=== PATIENT | male | born 1990 | race Caucasian/White ===

== ENCOUNTER 2020-11-29 13:56 | Emergency (ER) | payer OTHER, SELFPAY ==
[2020-11-29] VITALS (9 sets, daily range): BP systolic 109–124; BP diastolic 67–78; PULSE 80–119; RESP 13–18; TEMP 37.2; O2SAT 96–100
--- NOTE | 2020-11-29 13:59 | DI.RAD.S_ITS ---
PROCEDURE: XR CHEST 1V INDICATIONS: chest pain TECHNIQUE: One view of the chest was acquired. COMPARISON: None. FINDINGS: Surgical changes and devices: None. Lungs and pleura: Lungs are clear. No pleural effusions or pneumothorax. Mediastinum: Mediastinal contours appear normal. Heart size is normal. Bones and chest wall: No suspicious bony lesions. Overlying soft tissues appear unremarkable. IMPRESSION: No acute cardiopulmonary abnormality. Dictated by: Porfirio Slater M.D. on 11/29/2020 at 14:23 Approved by: Porfirio Slater M.D. on 11/29/2020 at 14:23
--- NOTE | 2020-11-29 14:27 | ED.CHESTPAIN ---
HPI - Chest Pain General Chief Complaint: Chest Pain Stated Complaint: chest discomfort Time Seen by Provider: 11/29/20 13:58 Source: patient Mode of arrival: Ambulatory History of Present Illness HPI narrative: 30-year-old otherwise healthy male who is here for evaluation of occasional symptoms that have been going on for the past several weeks if not several months. He states he has episodes where he feels like his heart is beating fast. He states that normally it last approximately 45 minutes and then resolves. Not worse with touching the area. Is somewhat associated with some shortness of breath at the start of the symptoms. He also occasionally has tingling down his left arm with the symptoms. He states that last evening he had a reoccurrence of the symptoms that he has had off and on for this period of time but it lasted several hours rather than less than 1 hour. He states that he has never been diagnosed with anxiety or panic attacks but states that his friends who do have these diagnosis has told him in the past that he potentially has anxiety. He states he does feel somewhat anxious when the symptoms are presenting themselves. No underlying lung issues. He is unvaccinated and gets COVID-19. No fevers. No cough. He is having the symptoms at the time of my evaluation. No recent travel. No recent antibiotics. Related Data Previous Rx's Medication Instructions Recorded propranolol 10 mg tablet 10 mg PO BID PRN #20 tab 11/29/20 Allergies Allergy/AdvReac Type Severity Reaction Status Date / Time amoxicillin Allergy Verified 11/29/20 14:12 Review of Systems Constitutional Constitutional: Reports system reviewed and no additional complaints, except as documented Cardiovascular Cardiovascular: Reports as per HPI and Reports system reviewed and no additional complaints, except as documented Respiratory Respiratory: Reports as per HPI and Reports system reviewed and no additional complaints, except as documented Gastrointestinal Gastrointestinal: Reports as per HPI and Reports system reviewed and no additional complaints, except as documented Genitourinary Genitourinary: Reports system reviewed and no additional complaints, except as documented Musculoskeletal Musculoskeletal: Reports system reviewed and no additional complaints, except as documented Integumentary/Breasts Skin/Breast: Reports system reviewed and no additional complaints, except as documented Neurologic Neurologic: Reports system reviewed and no additional complaints, except as documented Psychiatric Psychiatric: Reports system reviewed and no additional complaints, except as documented and Reports as per HPI Hematologic/Lymphatic Hematologic/Lymphatic: Reports system reviewed and no additional complaints, except as documented On Anticoagulants: No Allergic/Immunologic Allergic/Immunologic: Reports system reviewed and no additional complaints, except as documented Patient History Social History Smoking Status: Never smoker Smoking Status: Never smoker alcohol intake frequency: 0-2 drinks per day Substance Use Type: marijuana Exam Initial Vital Signs Initial Vital Signs: Vital Signs Temperature 99.0 F 11/29/20 13:58 Pulse Rate 119 H 11/29/20 13:58 Respiratory Rate 18 11/29/20 13:58 Blood Pressure 124/72 11/29/20 13:58 Pulse Oximetry 96 11/29/20 13:58 Const General: cooperative, healthy appearing, comfortable and well developed HENMT Head: normal to inspection and normocephalic Eyes General: appearance normal, both eyes and all related structures Neck Neck: normal visual inspection Chest Chest: normal inspection of the chest and No tenderness Resp Effort & Inspection: normal respiratory effort and not labored Auscultation: clear to auscultation bilaterally Cardio Rate: tachycardic Rhythm: regular rhythm GI Inspection: normal to inspection Back/Spine/Pelvis Back: normal to inspection Skin General: no rashes or lesions noted Lesions: no lesions Rashes: no rashes Neuro General: patient alert, patient awake and moves all extremities Extrem General: capillary refill normal Psych Appearance: grossly normal and well kempt Course Orders Ordered: ED Orders 11/29/20 13:59 XR chest 1V Stat EKG-12 Lead Stat 11/29/20 14:13 COVID19 -Nasal swab/Pre-Proc Stat 11/29/20 15:04 Basic Metabolic Panel Stat Complete Blood Count AUTO DIFF Stat Magnesium Stat Thyroid Stimulating Hormone Stat Discontinued Medications Propranolol HCl (Propranolol 10 Mg Tablet) 10 mg PO NOW ONE Stop: 11/29/20 15:10 Last Admin: 11/29/20 15:16 Dose: 10 mg Documented by: JONATHAN Vital Signs Vital signs: Vital Signs - 8 hr 11/29/20 13:58 11/29/20 14:11 11/29/20 14:30 Temperature 99.0 F Pulse Rate 119 H 111 H 104 H Respiratory Rate 18 15 Blood Pressure 124/72 116/67 Pulse Oximetry 96 99 99 11/29/20 15:00 11/29/20 15:30 11/29/20 16:00 Temperature Pulse Rate 96 H 96 H 93 H Respiratory Rate 14 13 17 Blood Pressure 118/74 113/75 113/75 Pulse Oximetry 100 98 98 MDM - Chest Pain Lab Data Attestation: I reviewed the patient's lab results. Result diagrams: 11/29/20 15:17 11/29/20 15:17 Labs: Lab Results 11/29/20 11/29/20 11/29/20 Range/Units 14:13 15:17 15:17 WBC 4.8 (4.5-11.0) X10^3/uL RBC 5.30 (4.5-5.9) X10^6/uL Hgb 15.6 (13.5-17.5) g/dL Hct 45.7 (41-53) % MCV 86.2 (80-100) fL MCH 29.3 (26-34) PG MCHC 34.0 (30-36) % RDW 13.1 (11.6-14.8) % Plt Count 232 (150-400) X10^3/uL Neut % (Auto) 78.7 H (50-75) % Lymph % (Auto) 12.8 L (25-40) % Lawrence % (Auto) 7.7 (3-14) % Eos % (Auto) 0.3 L (2-4) % Baso % (Auto) 0.5 (0-2) % Neut # (Auto) 3800 (6842-0379) /uL Lymph # (Auto) 600 L (2617-4373) /uL Lawrence # (Auto) 400 (0-900) /uL Eos # (Auto) 0 (0-450) /uL Baso # (Auto) 0 (0-100) /uL Sodium 143 (137-145) mmol/L Potassium 4.1 (3.4-5.1) mmol/L Chloride 108 H (98-107) mmol/L Carbon Dioxide 31 (22-32) mmol/L BUN 14 (9-20) mg/dL Creatinine 0.87 (0.66-1.25) mg/dL Estimated GFR > 60.0 (>60) mL/min BUN/Creatinine Ratio 16.1 (6-22) Glucose 106 H (70-100) mg/dL Calcium 9.4 (8.4-10.2) mg/dL Magnesium 2.0 (1.6-2.3) mg/dL TSH (0.47-4.68) uIU/mL SARS-CoV-2 (PCR) Negative (Negative) 11/29/20 Range/Units 15:17 WBC (4.5-11.0) X10^3/uL RBC (4.5-5.9) X10^6/uL Hgb (13.5-17.5) g/dL Hct (41-53) % MCV (80-100) fL MCH (26-34) PG MCHC (30-36) % RDW (11.6-14.8) % Plt Count (150-400) X10^3/uL Neut % (Auto) (50-75) % Lymph % (Auto) (25-40) % Lawrence % (Auto) (3-14) % Eos % (Auto) (2-4) % Baso % (Auto) (0-2) % Neut # (Auto) (9805-2487) /uL Lymph # (Auto) (4784-2132) /uL Lawrence # (Auto) (0-900) /uL Eos # (Auto) (0-450) /uL Baso # (Auto) (0-100) /uL Sodium (137-145) mmol/L Potassium (3.4-5.1) mmol/L Chloride (98-107) mmol/L Carbon Dioxide (22-32) mmol/L BUN (9-20) mg/dL Creatinine (0.66-1.25) mg/dL Estimated GFR (>60) mL/min BUN/Creatinine Ratio (6-22) Glucose (70-100) mg/dL Calcium (8.4-10.2) mg/dL Magnesium (1.6-2.3) mg/dL TSH 1.46 (0.47-4.68) uIU/mL SARS-CoV-2 (PCR) (Negative) Imaging Data Chest x-ray: Radiologist's Impression: [address] [address] XRay Report Signed Patient: Reece Wallace MR#: [id number] : 1990 Acct:[id number] Age/Sex: 30 / M Date of Service: 11/29/20 Loc: ED Accession Number: [id number] ?? Procedure: XR chest 1V Ordering Provider: Donald Harris D.O. PROCEDURE:? XR CHEST 1V ? INDICATIONS:? chest pain ? TECHNIQUE:? One view of the chest was acquired.? ? COMPARISON:? None. ? FINDINGS:? ? Surgical changes and devices:? None.? ? Lungs and pleura:? Lungs are clear.? No pleural effusions or pneumothorax.? ? Mediastinum:? Mediastinal contours appear normal.? Heart size is normal.? ? Bones and chest wall:? No suspicious bony lesions.? Overlying soft tissues appear unremarkable.? ? IMPRESSION:? No acute cardiopulmonary abnormality. ? Dictated by: Porfirio Slater M.D. on 11/29/2020 at 14:23 ? ? Approved by: Porfirio Slater M.D. on 11/29/2020 at 14:23?? ECG Data Attestation: I personally reviewed and interpreted this ECG as follows: Interpretation: Sinus tachycardia Ventricular rate of 115 Normal QRS Normal QTC No ST T wave changes MDM Narrative Medical decision making narrative: Here in the ER the patient was having his symptoms. He was sinus tachycardia on his EKG. His labs are unremarkable. Thyroid is unremarkable. Did feel somewhat better after propanolol. Plan of his send him over the prescription for propanolol. He will pain contact with a primary provider for continued follow-up. He expressed understanding and agreement. Discharge Plan Departure Patient Disposition: Home Clinical Impression: Sinus tachycardia Instructions: DI for Tachycardia Activity Restrictions/Additional Instructions: I recommend that you may contact with a primary doctor so that you can have follow-up with her presenting symptoms today. You may need further workup to include a potential referral to see Cardiology. Return to the emergency department for any new or worsening symptoms. Prescriptions: New propranolol 10 mg tablet 10 mg PO BID PRN (Reason: Rapid heart rate) Qty: 20 RF: 0
[2020-11-29 14:51] LABS: COVID19 -Nasal RAPID Negative (Negative)
[2020-11-29] MEDS: PROPRANOLOL 10 MG TABLET PO (15:16)
[2020-11-29 15:27] LABS: Add Manual Diff / Slide Review NO; Basophils Absolute Auto 0 /uL (0-100); Basophils Percent Auto 0.5 % (0-2); Eosinophils Absolute Auto 0 /uL (0-450); Eosinophils Percent Auto 0.3 % (2-4); Hematocrit 45.7 % (41-53); Hemoglobin 15.6 g/dL (13.5-17.5); Lymphocytes Absolute Auto 600 /uL (1100-4500); Lymphocytes Percent Auto 12.8 % (25-40); Mean Corpuscular Hemoglobin 29.3 PG (26-34); Mean Corpuscular Volume 86.2 fL (80-100); Monocytes Absolute Auto 400 /uL (0-900); Monocytes Percent Auto 7.7 % (3-14); Neutrophils Absolute Auto 3800 /uL (1500-7000); Neutrophils Percent Auto 78.7 % (50-75); Platelet Count 232 X10^3/uL (150-400); Red Cell Distribution Width 13.1 % (11.6-14.8); White Blood Cell Count 4.8 X10^3/uL (4.5-11.0)
[2020-11-29 15:34] LABS: BUN Creatinine Ratio 16.1 (6-22); Blood Urea Nitrogen 14 mg/dL (9-20); Calcium 9.4 mg/dL (8.4-10.2); Carbon Dioxide 31 mmol/L (22-32); Chloride 108 mmol/L (98-107); Estimated Glomerular Filt Rate > 60.0 mL/min (>60); Glucose 106 mg/dL (70-100); HEMOLYSIS 18 (0-50); Potassium 4.1 mmol/L (3.4-5.1); Sodium 143 mmol/L (137-145)
[2020-11-29 16:10] LABS: Thyroid Stimulating Hormone 1.46 uIU/mL (0.47-4.68)
[2020-11-29] MEDS: COVID-19 VACC, Ad26(JANSSEN)/PF 0.5 ML IM (16:54)
== END 2020-11-29 17:10 | disposition home or self-care (01) ==
PROVIDERS: Emergency Provider Emergency Medicine
DX: R00.0 Tachycardia, unspecified (principal); R06.02 Shortness of breath; Z20.822 Contact with and (suspected) exposure to COVID-19
CPT/HCPCS: 0031A; 36415; 71045; 80048; 83735; 84443; 85025; 87635; 91303; 93005; 93010; 99284; C9803

== ENCOUNTER 2020-12-22 11:42 | Emergency (ER) | payer SELFPAY ==
[2020-12-22 11:50] VITALS: BP 126/74; PULSE 102; RESP 18; TEMP 37.3; O2SAT 100; BMI 28.1
[2020-12-22 12:06] LABS: Add Manual Diff / Slide Review NO; Basophils Absolute Auto 0 /uL (0-100); Basophils Percent Auto 0.3 % (0-2); Eosinophils Absolute Auto 0 /uL (0-450); Hematocrit 46.6 % (41-53); Lymphocytes Absolute Auto 600 /uL (1100-4500); Lymphocytes Percent Auto 5.2 % (25-40); Mean Corpuscular HGB Conc 34.2 % (30-36); Mean Corpuscular Hemoglobin 29.4 PG (26-34); Monocytes Absolute Auto 700 /uL (0-900); Monocytes Percent Auto 6.3 % (3-14); Neutrophils Absolute Auto 9300 /uL (1500-7000); Neutrophils Percent Auto 88.2 % (50-75); Platelet Count 236 X10^3/uL (150-400); Red Blood Cell Count 5.42 X10^6/uL (4.5-5.9); Red Cell Distribution Width 13.1 % (11.6-14.8); White Blood Cell Count 10.6 X10^3/uL (4.5-11.0)
--- NOTE | 2020-12-22 12:13 | DI.CT.S_ITS ---
PROCEDURE: CT ABDOMEN PELVIS WO CON INDICATIONS: Right flank pain TECHNIQUE: Axial sections were acquired from the lung bases to the pubic symphysis. Coronal and sagittal reformats were performed. For radiation dose reduction, the following was used: automated exposure control, adjustment of mA and/or kV according to patient size. COMPARISON: None. FINDINGS: Image quality: Excellent. Lung bases: Unremarkable. Heart: No significant findings. URINARY: Right Kidney: Moderate right hydronephrosis and perinephric stranding . Punctate nonobstructive calculus in the right lower pole. Right Ureter: Hydroureter is seen. A 3.9 mm right distal ureteral calculus is seen. Left Kidney: No hydronephrosis. Punctate nephrolithiasis. Left Ureter: No hydroureter. Bladder: Normal wall thickness. No stones. ABDOMEN: Liver: Normal contour. Gallbladder: No wall thickening or pericholecystic fluid. Biliary ducts: Unremarkable. Pancreas: Unremarkable. Spleen: Unremarkable. Adrenal Glands: Unremarkable. Stomach and Bowel: No evidence of intestinal obstruction. The appendix is not clearly identified. Peritoneum: No abnormal intraperitoneal fluid. No free air. Ventral Wall: No hernia. Abdominal Nodes: No enlarged retroperitoneal or mesenteric lymph nodes. Vessels: Aorta and inferior vena cava are normal in size. PELVIS: Pelvic Organs: Enlargement of the prostate, measuring up to 4.8 cm. Pelvic Nodes: Unremarkable. Miscellaneous: No inguinal hernias are seen. Bones: Unremarkable. IMPRESSION: Moderate right hydronephrosis with 3.9 mm calculus in the distal ureter. Dictated by: Jasbir Cantu M.D. on 12/22/2020 at 12:39 Approved by: Jasbir Cantu M.D. on 12/22/2020 at 12:46
[2020-12-22 12:21] LABS: BUN Creatinine Ratio 16.2 (6-22); Blood Urea Nitrogen 18 mg/dL (9-20); Calcium 9.6 mg/dL (8.4-10.2); Carbon Dioxide 27 mmol/L (22-32); Chloride 103 mmol/L (98-107); Estimated Glomerular Filt Rate > 60.0 mL/min (>60); Glucose 98 mg/dL (70-100); HEMOLYSIS < 15 (0-50); Potassium 4.1 mmol/L (3.4-5.1); Sodium 141 mmol/L (137-145)
[2020-12-22 12:23] LABS: Bacteria Urine None Seen; Mucus Urine 2+ (Negative); RBC Urine 5-10/HPF (0-5/HPF); WBC Urine None Seen (0-5/HPF)
[2020-12-22 12:24] LABS: Culture Indicated Urine Cult Not Indicated
[2020-12-22] MEDS: KETOROLAC 30 MG/ML VIAL 15 MG IV (12:29)
[2020-12-22] MEDS: SODIUM CHLORIDE 0.9% 1,000 ML 1000 ML IV (12:29)
[2020-12-22] MEDS: ONDANSETRON 4 MG/2 ML INJ IV (12:29)
[2020-12-22 12:32] LABS: Lipase 62 U/L (23-300)
[2020-12-22 13:47] VITALS: BP 109/71; PULSE 86; O2SAT 100
--- NOTE | 2020-12-22 13:54 | ED_ITS ---
HPI - Abdominal Pain <Radha Landaverde PA-C - Last Filed: 12/22/20 20:06> General Chief Complaint: Abdominal Pain Stated Complaint: Poss kidney stones- pain since this morning Time Seen by Provider: 12/22/20 11:49 Source: patient Mode of arrival: Ambulatory Limitations: no limitations History of Present Illness HPI narrative: 30-year-old with past medical history kidney stones presents to the ED with abdominal pain for 1 day. Patient reports that his pain started in his right lower abdomen this morning along with nausea. Patient reports that since then, the pain has migrated to his right lower back. Endorses 7/10 pain. Endorses prior episodes of kidney stones, the last 1 was 6 years ago, but he passed spontaneously. Patient denies fever, chills, chest pain, shortness of breath, cough, vomiting, dysuria, lightheadedness, dizziness, syncope. Related Data Previous Rx's Medication Instructions Recorded propranolol 10 mg tablet 10 mg PO BID PRN #20 tab 11/29/20 tamsulosin 0.4 mg capsule (Flomax) 0.4 mg PO BEDTIME #30 cap 12/22/20 Allergies Allergy/AdvReac Type Severity Reaction Status Date / Time amoxicillin Allergy Verified 12/22/20 11:50 Review of Systems <Radha Landaverde PA-C - Last Filed: 12/22/20 20:06> Constitutional Constitutional: Denies chills, Denies fatigue, Denies fever(s), Denies frequent falls, Denies lethargy and Denies weakness Eyes Eyes: Denies change in vision, Denies eye discharge, Denies irritation and Denies loss of vision ENT Ears, Nose, Mouth, and Throat: Denies change in voice, Denies dizziness, Denies neck pain, Denies sore throat and Denies throat swelling Cardiovascular Cardiovascular: Denies chest pain, Denies irregular heart rhythm, Denies lightheadedness, Denies palpitations, Denies dyspnea, Denies dyspnea on exertion and Denies orthopnea Respiratory Respiratory: Denies cough, Denies dyspnea, Denies dyspnea on exertion and Denies wheezing Gastrointestinal Gastrointestinal: Reports abdominal pain, Denies change in bowel habits, Denies diarrhea, Reports nausea and Denies vomiting Comments: Flank pain Musculoskeletal Musculoskeletal: Denies neck pain and Denies numbness Integumentary/Breasts Skin/Breast: Denies pruritus, Denies erythema, Denies rash and Denies wounds Neurologic Neurologic: Denies behavioral changes, Denies confusion, Denies dizziness, Denies frequent falls, Denies loss of vision, Denies numbness and Denies weakness Psychiatric Psychiatric: Denies anxiety, Denies behavioral changes, Denies confusion, Denies depression, Denies homicidal ideation and Denies suicidal ideation Endocrine Endocrine: Denies fatigue, Denies flushing and Denies palpitations Hematologic/Lymphatic Hematologic/Lymphatic: Denies easy bruising Allergic/Immunologic Allergic/Immunologic: Denies urticaria, Denies throat swelling and Denies wheezing Patient History <Radha Landaverde PA-C - Last Filed: 12/22/20 20:06> Social History Smoking Status: Never smoker Smoking Status: Never smoker alcohol intake frequency: 0-2 drinks per day Substance Use Type: marijuana Exam <Radha Landaverde PA-C - Last Filed: 12/22/20 20:06> Initial Vital Signs Initial Vital Signs: Vital Signs Temperature 99.2 F 12/22/20 11:50 Pulse Rate 102 H 12/22/20 11:50 Respiratory Rate 18 12/22/20 11:50 Blood Pressure 126/74 12/22/20 11:50 Pulse Oximetry 100 12/22/20 11:50 Const General: cooperative HENMT Head: normocephalic and atraumatic Ears: external ears normal and TM's normal bilaterally Nose: external nose normal and No nasal discharge Face and sinus: sinuses nontender, face symmetric, no sinus tenderness and No dry mucous membranes Mouth: oral mucosae normal and moist mucous membranes Teeth and gingiva: dentition normal Throat: tonsils normal and uvula midline Eyes General: appearance normal, both eyes and all related structures Eyelids: eyelids normal Conjunctivae: conjunctivae normal Sclera: sclerae normal Pupils: PERRL EOM: EOM intact bilaterally Neck Neck: normal visual inspection, trachea midline, No lymphadenopathy, No midline deformity and No JVD Lymphatic: No lymphedema Chest Chest: normal inspection of the chest Resp Effort & Inspection: normal respiratory effort, able to speak in complete sentences, no respiratory distress and no use of accessory muscles Auscultation: clear to auscultation bilaterally, no rales, no rhonchi and no wheezes Cardio Rate: regular rate Rhythm: regular rhythm Heart Sounds: no click, no gallops, no murmurs and no rubs Pulses: normal peripheral pulses GI Inspection: non-distended Palpation: soft, no hepatosplenomegaly, No guarding, No pulsatile mass and No tender Auscultation: normal bowel sounds Rectal Exam: normal sphincter tone Other: Abdomen is soft, nondistended, nontender to palpation. Mild right-sided CVA tenderness. Back/Spine/Pelvis Back: No CVA tenderness Cervical Spine: cervical ROM normal and No pain with cervical ROM Thoracic/Lumbar Spine: thoracic and lumbar spine normal to inspection Skin General: no rashes or lesions noted, No jaundice and No petechiae Neuro General: patient alert, patient oriented x3, gait normal and no focal motor deficits Speech: speech normal Extrem General: full ROM, no clubbing, cyanosis or edema, no pedal edema and no calf tenderness Psych Appearance: well kempt Mental Status: mental status grossly normal Attitude: cooperative Thought Content: normal and suicidality Judgment: judgment good <Donald Harris DO - Last Filed: 12/23/20 06:59> Initial Vital Signs Initial Vital Signs: Vital Signs Temperature 99.2 F 12/22/20 11:50 Pulse Rate 102 H 12/22/20 11:50 Respiratory Rate 18 12/22/20 11:50 Blood Pressure 126/74 12/22/20 11:50 Pulse Oximetry 100 12/22/20 11:50 Course <Radha Landaverde PA-C - Last Filed: 12/22/20 20:06> Course Course Narrative: CT abdomen pelvis with findings of 3.9 mm stone in the right distal ureter. UA negative for UTI and nausea sufficient controlled with Toradol and Zofran. Will discharge home with ED return precautions, pain control, nausea control, Flomax. Orders Ordered: Discontinued Medications Sodium Chloride (Normal Saline 0.9%) 1,000 mls @ 1,000 mls/hr IV BOLUS ONE Stop: 12/22/20 13:11 Last Infusion: 12/22/20 13:19 Dose: 0 mls/hr Documented by: Admin: 12/22/20 12:29 Dose: 1,000 mls/hr Documented by: DAVID Ketorolac Tromethamine (Ketorolac 30 Mg/Ml Vial) 15 mg IV NOW ONE Stop: 12/22/20 12:13 Last Admin: 12/22/20 12:29 Dose: 15 mg Documented by: DAVID Ondansetron HCl (Ondansetron 4 Mg/2 Ml Inj) 4 mg IV NOW ONE Stop: 12/22/20 12:13 Last Admin: 12/22/20 12:29 Dose: 4 mg Documented by: DAVID Vital Signs Vital signs: Vital Signs - 8 hr 12/22/20 13:47 Pulse Rate 86 Blood Pressure 109/71 Pulse Oximetry 100 <Donald Harris DO - Last Filed: 12/23/20 06:59> Orders Ordered: Discontinued Medications Sodium Chloride (Normal Saline 0.9%) 1,000 mls @ 1,000 mls/hr IV BOLUS ONE Stop: 12/22/20 13:11 Last Infusion: 12/22/20 13:19 Dose: 0 mls/hr Documented by: Admin: 12/22/20 12:29 Dose: 1,000 mls/hr Documented by: DAVID Ketorolac Tromethamine (Ketorolac 30 Mg/Ml Vial) 15 mg IV NOW ONE Stop: 12/22/20 12:13 Last Admin: 12/22/20 12:29 Dose: 15 mg Documented by: DAVID Ondansetron HCl (Ondansetron 4 Mg/2 Ml Inj) 4 mg IV NOW ONE Stop: 12/22/20 12:13 Last Admin: 12/22/20 12:29 Dose: 4 mg Documented by: DAVID Vital Signs Vital signs: Vital Signs - 8 hr 12/22/20 13:47 Pulse Rate 86 Blood Pressure 109/71 Pulse Oximetry 100 MDM - Abdominal Pain <Radha Landaverde PA-C - Last Filed: 12/22/20 20:06> Lab Data Lab results narrative: Labs within normal limits, UA negative for UTI. Result diagrams: 12/22/20 12:00 12/22/20 12:00 Labs: Lab Results 12/22/20 12/22/20 12/22/20 Range/Units 12:00 12:00 12:00 WBC 10.6 (4.5-11.0) X10^3/uL RBC 5.42 (4.5-5.9) X10^6/uL Hgb 16.0 (13.5-17.5) g/dL Hct 46.6 (41-53) % MCV 86.0 (80-100) fL MCH 29.4 (26-34) PG MCHC 34.2 (30-36) % RDW 13.1 (11.6-14.8) % Plt Count 236 (150-400) X10^3/uL Neut % (Auto) 88.2 H (50-75) % Lymph % (Auto) 5.2 L (25-40) % [place] % (Auto) 6.3 (3-14) % Eos % (Auto) 0.0 L (2-4) % Baso % (Auto) 0.3 (0-2) % Neut # (Auto) 9300 H (9713-8674) /uL Lymph # (Auto) 600 L (7264-6494) /uL [place] # (Auto) 700 (0-900) /uL Eos # (Auto) 0 (0-450) /uL Baso # (Auto) 0 (0-100) /uL Sodium 141 (137-145) mmol/L Potassium 4.1 (3.4-5.1) mmol/L Chloride 103 (98-107) mmol/L Carbon Dioxide 27 (22-32) mmol/L BUN 18 (9-20) mg/dL Creatinine 1.11 (0.66-1.25) mg/dL Estimated GFR > 60.0 (>60) mL/min BUN/Creatinine Ratio 16.2 (6-22) Glucose 98 (70-100) mg/dL Calcium 9.6 (8.4-10.2) mg/dL Lipase 62 (23-300) U/L Urine RBC (0-5/HPF) Urine WBC (0-5/HPF) Urine Bacteria (None) Urine Mucus (Negative) Ur Culture Indicated? 12/22/20 Range/Units 12:05 WBC (4.5-11.0) X10^3/uL RBC (4.5-5.9) X10^6/uL Hgb (13.5-17.5) g/dL Hct (41-53) % MCV (80-100) fL MCH (26-34) PG MCHC (30-36) % RDW (11.6-14.8) % Plt Count (150-400) X10^3/uL Neut % (Auto) (50-75) % Lymph % (Auto) (25-40) % [place] % (Auto) (3-14) % Eos % (Auto) (2-4) % Baso % (Auto) (0-2) % Neut # (Auto) (5173-0290) /uL Lymph # (Auto) (5051-0504) /uL [place] # (Auto) (0-900) /uL Eos # (Auto) (0-450) /uL Baso # (Auto) (0-100) /uL Sodium (137-145) mmol/L Potassium (3.4-5.1) mmol/L Chloride (98-107) mmol/L Carbon Dioxide (22-32) mmol/L BUN (9-20) mg/dL Creatinine (0.66-1.25) mg/dL Estimated GFR (>60) mL/min BUN/Creatinine Ratio (6-22) Glucose (70-100) mg/dL Calcium (8.4-10.2) mg/dL Lipase (23-300) U/L Urine RBC 5-10/hpf H (0-5/HPF) Urine WBC None seen (0-5/HPF) Urine Bacteria None seen (None) Urine Mucus 2+ H (Negative) Ur Culture Indicated? Cult not indicated Point of care testing: Urine Dip Bedside Urine Glucose Negative Bedside Urine Bilirubin - Negative Bedside Urine Ketone +/- 5 Urine Specific [place] 1.030 Bedside Urine Occult Blood +++ Bedside Urine pH 6.0 Bedside Urine Protein +/- 15 Bedside Urine Urobilinogen - Negative Bedside Urine Nitrite - Negative Bedside Urine Leukocytes - Negative Esterase Imaging Data CT scan - abdomen/pelvis: Radiologist's Impression: PROCEDURE:? CT ABDOMEN PELVIS WO CON ? INDICATIONS:? Right flank pain ? TECHNIQUE:? Axial sections were acquired from the lung bases to the pubic symphysis.? Coronal and sagittal reformats were performed.? For radiation dose reduction, the following was used: ?automated exposure control, adjustment of mA and/or kV according to patient size.? ? COMPARISON:? ? None. ? FINDINGS:? Image quality:? Excellent.? ? Lung bases:? Unremarkable.? ? Heart:? No significant findings. ? URINARY: Right Kidney:? Moderate right hydronephrosis and perinephric stranding .? Punctate nonobstructive calculus in the right lower pole. Right Ureter:? Hydroureter is seen.? A 3.9 mm right distal ureteral calculus is seen. ? Left Kidney:? No hydronephrosis.? Punctate nephrolithiasis. Left Ureter:? No hydroureter.? ? Bladder:? Normal wall thickness. No stones. ? ? ? ABDOMEN: Liver:? Normal contour.? ? Gallbladder:? No wall thickening or pericholecystic fluid.? ? Biliary ducts:? Unremarkable.? ? Pancreas:? Unremarkable.? ? Spleen:? Unremarkable.? ? Adrenal Glands:? Unremarkable.? ? ? Stomach and Bowel:? No evidence of intestinal obstruction.? The appendix is not clearly identified. Peritoneum:? No abnormal intraperitoneal fluid.? No free air.? ? Ventral Wall: ? No hernia.? Abdominal Nodes:? No enlarged retroperitoneal or mesenteric lymph nodes.? Vessels:? Aorta and inferior vena cava are normal in size.? ? PELVIS: Pelvic Organs:? Enlargement of the prostate, measuring up to 4.8 cm.? ? Pelvic Nodes: Unremarkable. Miscellaneous: No inguinal hernias are seen. ? ? ? Bones:? Unremarkable. ? IMPRESSION:? ? Moderate right hydronephrosis with 3.9 mm calculus in the distal ureter.? ? ? Dictated by: Jasbir Cantu M.D. on 12/22/2020 at 12:39 ? ? Approved by: Jasbir Cantu M.D. on 12/22/2020 at 12:46 ? MDM Narrative Medical decision making narrative: 30-year-old with past medical history kidney stones presents to the ED with abdominal pain for 1 day. Concern for kidney stones versus appendicitis. Will order CT abdomen pelvis, labs, lipase, UA. Will give Toradol, Zofran, IV fluids. Will reassess. <Donald Harris, - Last Filed: 12/23/20 06:59> Lab Data Labs: Lab Results 12/22/20 12/22/20 12/22/20 Range/Units 12:00 12:00 12:00 WBC 10.6 (4.5-11.0) X10^3/uL RBC 5.42 (4.5-5.9) X10^6/uL Hgb 16.0 (13.5-17.5) g/dL Hct 46.6 (41-53) % MCV 86.0 (80-100) fL MCH 29.4 (26-34) PG MCHC 34.2 (30-36) % RDW 13.1 (11.6-14.8) % Plt Count 236 (150-400) X10^3/uL Neut % (Auto) 88.2 H (50-75) % Lymph % (Auto) 5.2 L (25-40) % [place] % (Auto) 6.3 (3-14) % Eos % (Auto) 0.0 L (2-4) % Baso % (Auto) 0.3 (0-2) % Neut # (Auto) 9300 H (5555-8817) /uL Lymph # (Auto) 600 L (3366-0999) /uL [place] # (Auto) 700 (0-900) /uL Eos # (Auto) 0 (0-450) /uL Baso # (Auto) 0 (0-100) /uL Sodium 141 (137-145) mmol/L Potassium 4.1 (3.4-5.1) mmol/L Chloride 103 (98-107) mmol/L Carbon Dioxide 27 (22-32) mmol/L BUN 18 (9-20) mg/dL Creatinine 1.11 (0.66-1.25) mg/dL Estimated GFR > 60.0 (>60) mL/min BUN/Creatinine Ratio 16.2 (6-22) Glucose 98 (70-100) mg/dL Calcium 9.6 (8.4-10.2) mg/dL Lipase 62 (23-300) U/L Urine RBC (0-5/HPF) Urine WBC (0-5/HPF) Urine Bacteria (None) Urine Mucus (Negative) Ur Culture Indicated? 12/22/20 Range/Units 12:05 WBC (4.5-11.0) X10^3/uL RBC (4.5-5.9) X10^6/uL Hgb (13.5-17.5) g/dL Hct (41-53) % MCV (80-100) fL MCH (26-34) PG MCHC (30-36) % RDW (11.6-14.8) % Plt Count (150-400) X10^3/uL Neut % (Auto) (50-75) % Lymph % (Auto) (25-40) % [place] % (Auto) (3-14) % Eos % (Auto) (2-4) % Baso % (Auto) (0-2) % Neut # (Auto) (7609-1426) /uL Lymph # (Auto) (6118-5331) /uL [place] # (Auto) (0-900) /uL Eos # (Auto) (0-450) /uL Baso # (Auto) (0-100) /uL Sodium (137-145) mmol/L Potassium (3.4-5.1) mmol/L Chloride (98-107) mmol/L Carbon Dioxide (22-32) mmol/L BUN (9-20) mg/dL Creatinine (0.66-1.25) mg/dL Estimated GFR (>60) mL/min BUN/Creatinine Ratio (6-22) Glucose (70-100) mg/dL Calcium (8.4-10.2) mg/dL Lipase (23-300) U/L Urine RBC 5-10/hpf H (0-5/HPF) Urine WBC None seen (0-5/HPF) Urine Bacteria None seen (None) Urine Mucus 2+ H (Negative) Ur Culture Indicated? Cult not indicated Point of care testing: Urine Dip Bedside Urine Glucose Negative Bedside Urine Bilirubin - Negative Bedside Urine Ketone +/- 5 Urine Specific [place] 1.030 Bedside Urine Occult Blood +++ Bedside Urine pH 6.0 Bedside Urine Protein +/- 15 Bedside Urine Urobilinogen - Negative Bedside Urine Nitrite - Negative Bedside Urine Leukocytes - Negative Esterase Discharge Plan Departure Patient Disposition: Home Clinical Impression: Kidney calculi Instructions: DI for Kidney Stones Activity Restrictions/Additional Instructions: You were evaluated in the ED today for abdominal pain. Your lab results, urinalysis were normal. Your CT abdomen pelvis shows a 3.9 mm kidney stone on the right side, which is likely the cause of your symptoms. You were given Zofran, Toradol, IV fluids in the ED for your symptoms. You can continue to take ibuprofen for pain control. Take Flomax daily until you pass a kidney stone. Return to the ED if you experience worsening of your symptoms, fever, chills, repeated vomiting and inability to keep down solids and fluids. Prescriptions: New tamsulosin [Flomax] 0.4 mg capsule 0.4 mg PO BEDTIME Qty: 30 RF: 0 No Action propranolol 10 mg tablet 10 mg PO BID PRN (Reason: Rapid heart rate) Qty: 20 RF: 0 <Donald Harris, DO - Last Filed: 12/23/20 06:59> Cosign ED Attending Cosignature Attestation: Dr Harris Co-Sign Statement: I was available for consultation during this patient's emergency department visit. This chart is signed by myself for administrative purposes only. I did not have direct contact with this patient during this visit. They were seen independently by the APC.
== END 2020-12-22 13:51 | disposition home or self-care (01) ==
PROVIDERS: Emergency Medicine; Emergency Provider Student in an Organized Health Care Education/Training Program
DX: N20.0 Calculus of kidney (principal); Z87.442 Personal history of urinary calculi; R11.0 Nausea
CPT/HCPCS: 36415; 74176; 80048; 81003; 81015; 83690; 85025; 96361; 96374; 96375; 99284; J1885; J2405